=== PATIENT | male | born 1965 | race Caucasian/White ===

== ENCOUNTER 2016-04-14 05:47 | Inpatient (IN) ==
--- NOTE | 2016-04-14 06:10 | Emergency Department Note ---
Disposition Clinical Impression: Chills (without fever) Disposition: Home, Self-Care Referrals: Demetris Dao DO [Primary Care Provider] - Forms: Work/School Release, ED Satisfaction Letter Abdominal Pain HPI - General Chief Complaint: ED Abdominal Pain Stated Complaint: gallbladder out Wed/woke up skaking/chills Time Seen by Provider: 04/14/16 06:03 Source: patient Limitations: no limitations Nursing Notes Reviewed: Yes Vital Signs Reviewed: Yes - History of Present Illness HPI Narrative: 50 yo status post cholecystectomy, postop day 3 presenting with complaint of rigors a few hours prior to presentation. Patient states that he has no new belly pain, states that the pain is just as it was soon after surgery. He denies diarrhea, nausea vomiting; UTI like symptoms. Denies any cough, sinus congestion runny nose. 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 Denies: fever Cardiovascular: Denies: chest pain, palpitations Respiratory: Denies: cough, dyspnea Gastrointestinal: Reports: abdominal pain. Denies: nausea, vomiting, diarrhea Genitourinary: Denies: urgency, dysuria, frequency Musculoskeletal: Denies: back pain Neurological: Denies: headache Abdominal Pain PMH - Past Medical History Medical history: Reports: arthritis, GERD, hypertension Male Surgical History: Reports: cholecystectomy, Tonsillectomy, vasectomy Psychiatric history: Reports: no psych history - Social History Smoking status: Former smoker Alcohol use: Reports: occasionally Drug use: Reports: none Physical Exam - General Limitations: no limitations General appearance: alert - Head Head exam: atraumatic, normocephalic - Eye Eye exam: Present: normal appearance - ENT ENT exam: normal exam - Chest Chest inspection: Present: normal inspection - Respiratory Respiratory exam: Present: normal lung sounds bilaterally. Absent: respiratory distress, wheezes - Abdominal Exam Abdominal exam: Present: soft, tenderness - Neurological Exam Neurological exam: Present: alert, oriented X3 - Skin Skin exam: Present: warm, dry, other (surgical wounds are intact w/o drainage) Course Course Narrative: 50 -year-old male presenting with complaint of rigor prior to presentation, patient is status post cholecystectomy, postoperative day 3. Patient stated that he felt chills, but no fever. He has belly pain, but this is baseline since the surgery. He denies any nausea or vomiting, states that he has constipation and has not had a bowel movement for the past 4 days. Evaluation of abdomen, surgical incision sites are intact w/o drainage. We will do a sepsis workup. Patient is afebrile in the ED, vital signs stable. Vital Signs Temperature 98 F 04/14/16 05:49 Pulse Rate 106 04/14/16 05:49 Respiratory Rate 20 04/14/16 05:49 Blood Pressure 127/76 04/14/16 05:49 O2 Sat by Pulse Oximetry 96 04/14/16 05:49 Temperature 98 F 04/14/16 05:49 Pulse Rate 106 04/14/16 05:49 Respiratory Rate 20 04/14/16 05:49 Blood Pressure 127/76 04/14/16 05:49 O2 Sat by Pulse Oximetry 96 04/14/16 05:49 Oxygen Delivery Oxygen Delivery Room Air Abdominal Pain - Lab Data Result diagrams: 04/14/16 06:21 04/14/16 06:21 Lab Results 04/14/16 04/14/16 04/14/16 Range/Units 06:21 06:21 06:21 WBC 20.1 H (4.3-11.1) K/mcL RBC 4.56 (4.19-5.50) M/mcL Hgb 12.8 L (12.9-16.9) g/dL Hct 39.8 (37.5-50.1) % MCV 87.3 (83.0-100.0) fL MCH 28.1 (28.0-33.3) pg MCHC 32.2 (31.6-35.5) g/dL RDW 14.1 (11.5-14.5) % Plt Count 250 (140-400) K/mcL MPV 9.6 (9.4-12.4) fL Immature Gran % 0.8 (0-4) % Seg Neutrophils % 77.8 % Lymphocytes % 7.2 % Monocytes % 12.0 % Eosinophils % 2.0 % Basophils % 0.2 % Neutrophils # 15.6 H (1.6-8.9) K/mcL Lymphocytes # 1.5 (0.6-4.6) K/mcL Monocytes # 2.4 H (0.0-1.3) K/mcL Eosinophils # 0.4 (0.0-0.6) K/mcL Basophils # 0.0 (0.0-0.2) K/mcL Sodium 140 (136-145) mEq/L Potassium 4.0 (3.5-4.5) mEq/L Chloride 106 (98-109) mEq/L Carbon Dioxide 23 (19-29) mEq/L BUN 21 (8-26) mg/dL Creatinine 1.02 (0.72-1.25) mg/dL Est GFR ( Amer) > 60 (> 60) Est GFR (Non-Af Amer) > 60 (> 60) BUN/Creatinine Ratio 21 (6-26) Glucose 120 H (70-99) mg/dL Calculated Osmolality 294 (280-300) Lactic Acid (0.5-2.2) mmol/L Calcium 8.7 (8.6-10.8) mg/dL Urine Color Dark Yellow (Yellow) Urine Clarity Clear (Clear) Urine pH 6.0 (5.0-8.0) pH Units Ur Specific [place] > 1.030 H (1.010-1.025) Urine Protein 30 H (Neg-Trace) mg/dL Urine Glucose (UA) Normal (Normal) mg/dL Urine Ketones Negative (Negative) mg/dL Urine Blood Negative (Negative) Urine Nitrite Negative (Negative) Urine Bilirubin Negative (Negative) Urine Urobilinogen Normal (Normal) mg/dL Ur Leukocyte Esterase Negative (Negative) Urine Microscopic RBC 3-5 H (0-3) per hpf Urine Microscopic WBC 5-15 H (0-3) per hpf Ur Squamous Epith Cells Many H (None-Few) per lpf Urine Bacteria None Seen (None-Few) per hpf Hyaline Casts Moderate H (None-Few) per lpf Urine Mucus Few (Few) Ur Culture Indicated? YES A (NO) 04/14/16 Range/Units 06:21 WBC (4.3-11.1) K/mcL RBC (4.19-5.50) M/mcL Hgb (12.9-16.9) g/dL Hct (37.5-50.1) % MCV (83.0-100.0) fL MCH (28.0-33.3) pg MCHC (31.6-35.5) g/dL RDW (11.5-14.5) % Plt Count (140-400) K/mcL MPV (9.4-12.4) fL Immature Gran % (0-4) % Seg Neutrophils % % Lymphocytes % % Monocytes % % Eosinophils % % Basophils % % Neutrophils # (1.6-8.9) K/mcL Lymphocytes # (0.6-4.6) K/mcL Monocytes # (0.0-1.3) K/mcL Eosinophils # (0.0-0.6) K/mcL Basophils # (0.0-0.2) K/mcL Sodium (136-145) mEq/L Potassium (3.5-4.5) mEq/L Chloride (98-109) mEq/L Carbon Dioxide (19-29) mEq/L BUN (8-26) mg/dL Creatinine (0.72-1.25) mg/dL Est GFR ( Amer) (> 60) Est GFR (Non-Af Amer) (> 60) BUN/Creatinine Ratio (6-26) Glucose (70-99) mg/dL Calculated Osmolality (280-300) Lactic Acid 1.5 (0.5-2.2) mmol/L Calcium (8.6-10.8) mg/dL Urine Color (Yellow) Urine Clarity (Clear) Urine pH (5.0-8.0) pH Units Ur Specific [place] (1.010-1.025) Urine Protein (Neg-Trace) mg/dL Urine Glucose (UA) (Normal) mg/dL Urine Ketones (Negative) mg/dL Urine Blood (Negative) Urine Nitrite (Negative) Urine Bilirubin (Negative) Urine Urobilinogen (Normal) mg/dL Ur Leukocyte Esterase (Negative) Urine Microscopic RBC (0-3) per hpf Urine Microscopic WBC (0-3) per hpf Ur Squamous Epith Cells (None-Few) per lpf Urine Bacteria (None-Few) per hpf Hyaline Casts (None-Few) per lpf Urine Mucus (Few) Ur Culture Indicated? (NO) Attestation Statement - Attestation Attestation: For this encounter, I have reviewed the resident, CEO [employer] CO FOUNDER, or PA documentation, treatment plan, and medical decision making; and I have had face to face time with this patient. 50-year-old male presents with concerns of chills. Patient states he had his gallbladder removed 3 days ago with a non-complicated cholecystectomy. Patient denies new abdominal pain today. Patient denies nausea, vomiting, diarrhea. Abdominal exam reveals mild tenderness to palpation around the right upper quadrant without evidence of erythema, induration, or fluctuance or drainage from the incision area. Laboratory evaluation and CT pending at the end of my shift. Patient will be signed out to the oncoming physician of the day team pending disposition.
[2016-04-14 06:30] LABS: Basophils % 0.2 %; Eosinophils # 0.4 K/mcL (0.0-0.6); Hematocrit 39.8 % (37.5-50.1); Hemoglobin 12.8 g/dL (12.9-16.9); Immature Granulocytes % 0.8 % (0-4); Lymphocytes # 1.5 K/mcL (0.6-4.6); Lymphocytes % 7.2 %; Mean Corpuscular HGB Conc 32.2 g/dL (31.6-35.5); Mean Corpuscular Hemoglobin 28.1 pg (28.0-33.3); Mean Corpuscular Volume 87.3 fL (83.0-100.0); Mean Platelet Volume 9.6 fL (9.4-12.4); Monocytes # 2.4 K/mcL (0.0-1.3); Neutrophils # 15.6 K/mcL (1.6-8.9); Platelet Count 250 K/mcL (140-400); Red Blood Count 4.56 M/mcL (4.19-5.50); Red Cell Distribution Width 14.1 % (11.5-14.5); Segmented Neutrophils % 77.8 %
[2016-04-14 06:40] LABS: Bilirubin,Urine Negative (Negative); Blood,Urine Negative (Negative); Clarity,Urine Clear (Clear); Color,Urine Dark Yellow (Yellow); Glucose,Urine (UA) Normal (Normal); Ketones,Urine Negative (Negative); Leukocyte Esterase,Urine Negative (Negative); Nitrite,Urine Negative (Negative); Protein,Urine 30 mg/dL (Neg-Trace); Specific Gravity,Urine > 1.030 (1.010-1.025); Urobilinogen,Urine Normal (Normal)
[2016-04-14 06:42] LABS: BUN/Creatinine Ratio 21 (6-26); Bacteria,Urine None Seen per hpf (None-Few); Blood Urea Nitrogen 21 mg/dL (8-26); Calcium 8.7 mg/dL (8.6-10.8); Carbon Dioxide 23 mEq/L (19-29); Chloride 106 mEq/L (98-109); Glucose 120 mg/dL (70-99); Hyaline Casts,Urine Moderate per lpf (None-Few); Osmolality,Calculated 294 (280-300); Sodium 140 mEq/L (136-145); Squamous Epithelial Cell,Urine Many per lpf (None-Few); eGFR For African Americans > 60 (> 60); eGFR For Non-African Americans > 60 (> 60)
[2016-04-14 06:52] LABS: Mucus,Urine Few (Few)
[2016-04-14] MEDS ORDERED: 0.9 % Sodium Chloride 1,000 ML IV ONE (07:09)
[2016-04-14] MEDS ORDERED: *HR* HYDROmorphone (PF) 1 MG/ML SYRINGE IV ONE (07:09)
[2016-04-14] MEDS ORDERED: Ondansetron 4 MG/2 ML VIAL IV ONE (07:09)
[2016-04-14] MEDS ORDERED: *HR* HYDROmorphone (PF) 1 MG/ML SYRINGE IVP ONE (07:14)
[2016-04-14] MEDS ORDERED: Piperacillin/Tazobactam 3.375 GM in D5% in Water (Mini-Bag+) 100 ML IVPB ONE (07:14)
--- NOTE | 2016-04-14 07:21 | Emergency Department Note ---
Disposition Clinical Impression: Chills (without fever), Status post cholecystectomy, Subhepatic abscess, Choledocholithiasis Disposition: Admitted As Inpatient Condition: Good Abdominal Pain HPI - General Chief Complaint: ED Abdominal Pain Stated Complaint: gallbladder out Wed/woke up skaking/chills Time Seen by Provider: 04/14/16 06:03 Source: patient - History of Present Illness HPI Narrative: Patient was signed out by shredded filler machine wrapper layer provider. Please see Dr. Crain note for full details. Pt Subjective Complaint: abdominal pain Location: diffuse Pain Scale: 5 - Related Data Home Medications Medication Instructions Recorded Confirmed Lisinopril [Zestril] 20 mg PO DAILY 04/11/16 04/14/16 Omeprazole [PriLOSEC] 40 mg PO DAILY 04/11/16 04/14/16 Sertraline [Zoloft] 100 mg PO DAILY 04/11/16 04/14/16 Ibuprofen [Motrin] 800 mg PO TID 04/14/16 04/14/16 OxyCODONE/APAP 10/325 [Percocet 1 tab PO Q6HR PRN 04/14/16 04/14/16 10/325 MG] Allergies Allergy/AdvReac Type Severity Reaction Status Date / Time No Known Allergies Allergy Verified 04/14/16 05:49 All systems ED: reviewed and negative except as stated. Constitutional: Reports: chills. Denies: fever Cardiovascular: Denies: chest pain, palpitations Respiratory: Denies: cough, dyspnea Gastrointestinal: Reports: abdominal pain. Denies: nausea, vomiting, diarrhea Genitourinary: Denies: urgency, dysuria, frequency Musculoskeletal: Denies: back pain Neurological: Denies: headache Abdominal Pain PMH - Past Medical History Medical history: Reports: arthritis, GERD, hypertension Male Surgical History: Reports: cholecystectomy, Tonsillectomy, vasectomy Psychiatric history: Reports: no psych history - Social History Smoking status: Former smoker Alcohol use: Reports: occasionally Drug use: Reports: none Physical Exam - General Limitations: no limitations General appearance: alert, in no apparent distress - Head Head exam: normocephalic, normal inspection - Eye Eye exam: Present: normal appearance, EOMI - ENT ENT exam: normal exam, mucous membranes moist - Neck Neck exam: Present: normal inspection, trachea midline - Chest Chest inspection: Present: normal inspection, symmetric chest wall rise - Respiratory Respiratory exam: Absent: respiratory distress, accessory muscle use - Cardiovascular Cardiovascular exam: Present: regular rate, normal rhythm - Abdominal Exam Abdominal exam: Present: soft, tenderness (mild tenderness), distention, scar ( well approximated healing incision consistent with recent surgery). Absent: guarding, rebound, hernia - Extremities Exam Extremities exam: Present: normal inspection. Absent: pedal edema - Back Exam Back exam: Present: normal inspection. Absent: tenderness, CVA tenderness (R), CVA tenderness (L) - Neurological Exam Neurological exam: Present: alert, oriented X3 - Skin Skin exam: Present: warm, dry, intact, normal color Course Course Narrative: Patient seen and examined. Patient was signed out by oncoming provider. Patient status postop from a laparoscopic cholecystectomy. Patient reports some continuing pain. Patient noted that he woke up this morning with rigors and chills and no fever. Patient was screened for signs of infection which include a chest x-ray and abd pelvis CT with contrast as well as a UA as the patient did have a urinary catheter. - Reevaluation(s) Reevaluation #1: Patient's operative note was noted and showed a filling defect with intraoperative cholangiogram. Plan is for outpatient follow-up with GI with ERCP. Patient CT the abdomen and pelvis shows a 5 mm stone within the distal common bile duct with a 4.8 x 9.3 cm fluid collection within the postoperative bed. Patient's chest x-ray shows bilateral atelectasis versus pneumonia. Patient does have an elevated white count with likely source of infection. Patient will be cultured and started on antibiotics. Will speak with surgery. Time: 07:29 Reevaluation #2: Patient is up-to-date on plan of care. Patient denies any pain at this time. Patient will be admitted to surgery. Time: 07:50 - Consultations Consultation #1: Dr. Sudhir florez to see the patient. Will admit to surgery with plan for IR drainage of abdominal fluid collection in post operative bed. Time: 07:44 Vital Signs Temperature 98 F 04/14/16 05:49 Pulse Rate 106 04/14/16 05:49 Respiratory Rate 20 04/14/16 05:49 Blood Pressure 127/76 04/14/16 05:49 O2 Sat by Pulse Oximetry 96 04/14/16 05:49 Temperature 98.5 F 04/14/16 11:21 Pulse Rate 99 04/14/16 12:13 Respiratory Rate 16 04/14/16 12:13 Blood Pressure 144/88 04/14/16 12:13 O2 Sat by Pulse Oximetry 95 04/14/16 12:13 Oxygen Delivery Oxygen Delivery Nasal Cannula Abdominal Pain - MDM Narrative Medical decision making narrative: 50-year-old male who is status postop from a laparoscopic cholecystectomy presents for evaluation of chills. Patient states that the chills started this morning. Patient's interoperative report was reviewed and showed a filling defect in the common bile duct with several attempts to remove the stone. Patient's CT abdomen and pelvis shows a postoperative fluid collection that is approximately 4.8 x 9.3 cm in the postoperative bed. Patient also has a 5 mm stone in the distal common bile duct. Patient's symptoms likely result of the fluid collection in the postoperative bed. Patient's labs show that he does have a leukocytosis. Concerns for infection. Patient is started on antibiotics. Patient's chest x-ray also shows bilateral lower lobe infiltrates with a small right pleural effusion. Plan is admit to surgery for IR drainage of postoperative fluid collection. Patient's updated on plan of care. Patient denies any needs at this time. Patient does meets SIRS criteria with likely source of infection. With the 30cc/ kg criteria of IVFs, their is concerns about overaggressive fluid hydration in this gentleman. Patient's received 1 L normal saline as well as subsequent normal saline fluid boluses. Patient's hemodynamically stable and do not believe that he would benefit from excessive fluid overload if there is possible further surgical intervention. Patient's antibiotic regimen was started in the ER. - Lab Data Lab results reviewed: Yes I reviewed the patient's lab results. Result diagrams: 04/14/16 06:21 04/14/16 10:05 Lab Results 04/14/16 04/14/16 04/14/16 Range/Units 06:21 06:21 06:21 WBC 20.1 H (4.3-11.1) K/mcL RBC 4.56 (4.19-5.50) M/mcL Hgb 12.8 L (12.9-16.9) g/dL Hct 39.8 (37.5-50.1) % MCV 87.3 (83.0-100.0) fL MCH 28.1 (28.0-33.3) pg MCHC 32.2 (31.6-35.5) g/dL RDW 14.1 (11.5-14.5) % Plt Count 250 (140-400) K/mcL MPV 9.6 (9.4-12.4) fL Immature Gran % 0.8 (0-4) % Seg Neutrophils % 77.8 % Lymphocytes % 7.2 % Monocytes % 12.0 % Eosinophils % 2.0 % Basophils % 0.2 % Neutrophils # 15.6 H (1.6-8.9) K/mcL Lymphocytes # 1.5 (0.6-4.6) K/mcL Monocytes # 2.4 H (0.0-1.3) K/mcL Eosinophils # 0.4 (0.0-0.6) K/mcL Basophils # 0.0 (0.0-0.2) K/mcL PT (9.4-12.1) Seconds INR APTT (26.0-36.0) Seconds Sodium 140 (136-145) mEq/L Potassium 4.0 (3.5-4.5) mEq/L Chloride 106 (98-109) mEq/L Carbon Dioxide 23 (19-29) mEq/L BUN 21 (8-26) mg/dL Creatinine 1.02 (0.72-1.25) mg/dL Est GFR ( Amer) > 60 (> 60) Est GFR (Non-Af Amer) > 60 (> 60) BUN/Creatinine Ratio 21 (6-26) Glucose 120 H (70-99) mg/dL Calculated Osmolality 294 (280-300) Lactic Acid (0.5-2.2) mmol/L Calcium 8.7 (8.6-10.8) mg/dL Total Bilirubin (0.2-1.2) mg/dL Direct Bilirubin (0.0-0.5) mg/dL Indirect Bilirubin (0.0-1.2) mg/dL AST (5-34) Units/L ALT (0-55) Units/L Alkaline Phosphatase (38-126) Units/L Serum Total Protein (6.0-8.3) g/dL Albumin (3.5-5.0) g/dL Globulin (2.4-3.5) g/dL Albumin/Globulin Ratio (1.1-2.2) Urine Color Dark Yellow (Yellow) Urine Clarity Clear (Clear) Urine pH 6.0 (5.0-8.0) pH Units Ur Specific [place] > 1.030 H (1.010-1.025) Urine Protein 30 H (Neg-Trace) mg/dL Urine Glucose (UA) Normal (Normal) mg/dL Urine Ketones Negative (Negative) mg/dL Urine Blood Negative (Negative) Urine Nitrite Negative (Negative) Urine Bilirubin Negative (Negative) Urine Urobilinogen Normal (Normal) mg/dL Ur Leukocyte Esterase Negative (Negative) Urine Microscopic RBC 3-5 H (0-3) per hpf Urine Microscopic WBC 5-15 H (0-3) per hpf Ur Squamous Epith Cells Many H (None-Few) per lpf Urine Bacteria None Seen (None-Few) per hpf Hyaline Casts Moderate H (None-Few) per lpf Urine Mucus Few (Few) Ur Culture Indicated? YES A (NO) 04/14/16 04/14/16 04/14/16 Range/Units 06:21 07:41 07:46 WBC (4.3-11.1) K/mcL RBC (4.19-5.50) M/mcL Hgb (12.9-16.9) g/dL Hct (37.5-50.1) % MCV (83.0-100.0) fL MCH (28.0-33.3) pg MCHC (31.6-35.5) g/dL RDW (11.5-14.5) % Plt Count (140-400) K/mcL MPV (9.4-12.4) fL Immature Gran % (0-4) % Seg Neutrophils % % Lymphocytes % % Monocytes % % Eosinophils % % Basophils % % Neutrophils # (1.6-8.9) K/mcL Lymphocytes # (0.6-4.6) K/mcL Monocytes # (0.0-1.3) K/mcL Eosinophils # (0.0-0.6) K/mcL Basophils # (0.0-0.2) K/mcL PT 12.2 H (9.4-12.1) Seconds INR 1.1 APTT 25.3 L (26.0-36.0) Seconds Sodium (136-145) mEq/L Potassium (3.5-4.5) mEq/L Chloride (98-109) mEq/L Carbon Dioxide (19-29) mEq/L BUN (8-26) mg/dL Creatinine (0.72-1.25) mg/dL Est GFR ( Amer) (> 60) Est GFR (Non-Af Amer) (> 60) BUN/Creatinine Ratio (6-26) Glucose (70-99) mg/dL Calculated Osmolality (280-300) Lactic Acid 1.5 (0.5-2.2) mmol/L Calcium (8.6-10.8) mg/dL Total Bilirubin 0.8 (0.2-1.2) mg/dL Direct Bilirubin 0.4 (0.0-0.5) mg/dL Indirect Bilirubin 0.4 (0.0-1.2) mg/dL AST 20 (5-34) Units/L ALT 37 (0-55) Units/L Alkaline Phosphatase 68 (38-126) Units/L Serum Total Protein 6.6 (6.0-8.3) g/dL Albumin 2.8 L (3.5-5.0) g/dL Globulin 3.8 H (2.4-3.5) g/dL Albumin/Globulin Ratio 0.7 L (1.1-2.2) Urine Color (Yellow) Urine Clarity (Clear) Urine pH (5.0-8.0) pH Units Ur Specific [place] (1.010-1.025) Urine Protein (Neg-Trace) mg/dL Urine Glucose (UA) (Normal) mg/dL Urine Ketones (Negative) mg/dL Urine Blood (Negative) Urine Nitrite (Negative) Urine Bilirubin (Negative) Urine Urobilinogen (Normal) mg/dL Ur Leukocyte Esterase (Negative) Urine Microscopic RBC (0-3) per hpf Urine Microscopic WBC (0-3) per hpf Ur Squamous Epith Cells (None-Few) per lpf Urine Bacteria (None-Few) per hpf Hyaline Casts (None-Few) per lpf Urine Mucus (Few) Ur Culture Indicated? (NO) - Radiology Data Radiology results reviewed: Yes I reviewed the patient's radiology results. Chest X-Ray 04/14/16 06:03 IMPRESSION: Low volume study with bibasilar atelectasis or pneumonia. D/ / Jean Paul Sifuentes MD / Jean Paul Sifuentes MD Interpreting Provider: Jean Paul Sifuentes MD Abdomen/Pelvis CT 04/14/16 06:29 IMPRESSION: 1. Status post cholecystectomy with 4.8 x 9.3 cm fluid collection within the postoperative bed. Cannot exclude biloma. 2. There is a 5 mm stone within the distal common bile duct. 3. Bilateral lower lobe infiltrate and small right effusion. D/ / 04/14/2016 07:15:03 Scottie Bae MD / Smita Curtis Interpreting Provider: Scottie Bae MD Critical Care Time Critical Care Time: Yes Total Critical Care Time: 30 Attestation: Critical care performed: Time is exclusive of separately billable procedures. Time includes: direct patient care, patient reassessment, coordination of patient care, interpretation of data (laboratory data, radiology data, and respiratory data), review of patient's medical records, medical consultation and documentation of patient care. Procedures included in critical care time: Procedures excluded from critical care time: S.B.A.R. - S.B.ACitlalli Situation: Demographics, MOA Background: Presenting Complaint Assessment: Vital Signs, Course and respsone to treatment, Patient/Family Expectation, Pertinant Lab Results Recommendation: Barrier(s) to disposition, Recommendation based on pending studies, treatments, or consults S.B.ANoraRNora Report Given to: Dr. Tom Mitchell Repor Time: 08:25 Attestation Statement - Attestation Attestation: I examined this patient and my medical decision-making was reviewed with the RETAIL MORTGAGE BANKER/PA/Advanced Practice Nurse/Resident Physician. I agree with the documented findings, disposition and treatment plan as described except to the extent set forth below. Patient signed out pending CT. Patient has a 4 x 9 cm fluid collection with the gallbladder was removed. His elevated white blood cell count. He received a dose of Zosyn. He was discussed with surgery who consulted on him in the department. He is admitted to Dr. Peguero. Cultures and lactate ordered.
--- NOTE | 2016-04-14 07:46 | General Surg History&Physical ---
Date of Encounter: 04/14/16 Time of Encounter: 07:43 Assessment and Plan (1) Subhepatic abscess Current Visit: Yes Status: Acute I explained to the patient that I personally reviewed the CT scan images do see the small common bile duct stone but more importantly than 9 x 5 significant subhepatic fluid collection as well. I think the latter is the source of his rigors and leukocytosis. We will start IV antibiotics and I will admit him and request a CT scan guided drainage of the subhepatic fluid collection. The assessment and plan as outlined above was discussed with the patient and/or family members who expressed understanding and agreement. All questions were answered. (2) Choledocholithiasis Current Visit: Yes Status: Acute The patient was to follow with me as an outpatient and be referred for a possible ERCP as an outpatient. Liver function tests have not been returned yet to see whether or not he is having signs of obstruction or possible obstruction from this 5 mm stone. I will request a CT scan guided drainage of the fluid collection and if it appears that the stone may be causing problems ( related to the liver function tests) then we will likely need to transfer the patient for possible ERCP during this hospital stay. The assessment and plan as outlined above was discussed with the patient and/or family members who expressed understanding and agreement. All questions were answered. History of Present Illness Chief complaint: Right upper abdominal pain, rigors HPI: Mr. Pires is a 50 year old male who recently underwent a laparoscopic cholecystectomy with intraoperative cholangiogram and attempted removal of common bile duct stone on 04/10/2016 presents to the [facility] emergency room with increasing abdominal pain particularly worsened with deep breaths, as well as rigors. The patient contacted our office yesterday stating that he been having some increasing abdominal pain symptoms since his surgery. He was instructed to take Motrin in addition to his current pain medication which did resolve his symptoms. He was to follow-up with me in the office next week and also be referred to gastroenterology for possible ERCP due to the non- retrievable, non-obstructive common bile duct stone (which had likely been present for some time and which was free-floating within the common bile duct), however because of his persistent and worsening abdominal pain symptoms he presented to the emergency room. He denies any nausea or vomiting and denies any diarrhea or constipation or rectal bleeding. Past Med Surg Social Fam HX - Past Medical History Medical history: arthritis, GERD, hypertension Psychiatric history: no psych history - Past Surgical History Surgical History: cholecystectomy, vasectomy - Social History Smoking Status: Former smoker Smokeless Tobacco Status: No Alcohol use: occasionally Drug use: none Medications and Allergies Lisinopril [Zestril] 20 mg PO DAILY 04/11/16 [History] Omeprazole [PriLOSEC] 40 mg PO DAILY 04/11/16 [History] OxyCODONE/APAP 10/325 [Percocet 10/325 MG] 1 each PO Q6HR PRN #26 tablet [Rx] Sertraline [Zoloft] 100 mg PO DAILY 04/11/16 [History] Allergies No Known Allergies Allergy (Verified 04/14/16 05:49) Review of Systems All systems PM: reviewed and no additional remarkable complaints except as stated All systems PM: A 10-system review of systems was performed and is negative for pertinent findings except as documented above in the HPI. General Surgery Exam Initial Vital Signs Temp Pulse Resp BP Pulse Ox 98 F 106 20 127/76 96 04/14/16 05:49 04/14/16 05:49 04/14/16 05:49 04/14/16 05:49 04/14/16 05:49 - Eyes PERRL, normal ocular movement - Respiratory normal expansion, normal respiratory effort (Decreased breath sounds at the bases) - Cardiovascular Cardiovascular exam: Present: RRR, no murmurs/rubs/gallops - Abdomen Abdomen general surgery: Present: bowel sounds present (Mildly obese), distended (Mildly distended), tender (RUQ pain to palpation) - Neurologic Present: CN 2-12 grossly intact - Psychiatric Psychiatric general surgery: Present: A&Ox3, oriented to person, oriented to place, oriented to time Results - Labs 04/14/16 06:21 04/14/16 06:21 Abnormal lab results WBC 20.1 K/mcL (4.3-11.1) H 04/14/16 06:21 Hgb 12.8 g/dL (12.9-16.9) L 04/14/16 06:21 Neutrophils # 15.6 K/mcL (1.6-8.9) H 04/14/16 06:21 Monocytes # 2.4 K/mcL (0.0-1.3) H 04/14/16 06:21 Glucose 120 mg/dL (70-99) H 04/14/16 06:21 Ur Specific Ridge > 1.030 (1.010-1.025) H 04/14/16 06:21 Urine Protein 30 mg/dL (Neg-Trace) H 04/14/16 06:21 Urine Microscopic RBC 3-5 per hpf (0-3) H 04/14/16 06:21 Urine Microscopic WBC 5-15 per hpf (0-3) H 04/14/16 06:21 Ur Squamous Epith Cells Many per lpf (None-Few) H 04/14/16 06:21 Hyaline Casts Moderate per lpf (None-Few) H 04/14/16 06:21 Ur Culture Indicated? YES (NO) A 04/14/16 06:21 Diabetes panel 04/14/16 Range/Units 06:21 Sodium 140 (136-145) mEq/L Potassium 4.0 (3.5-4.5) mEq/L Chloride 106 (98-109) mEq/L Carbon Dioxide 23 (19-29) mEq/L BUN 21 (8-26) mg/dL Creatinine 1.02 (0.72-1.25) mg/dL Glucose 120 H (70-99) mg/dL Calcium 8.7 (8.6-10.8) mg/dL Calcium panel 04/14/16 Range/Units 06:21 Calcium 8.7 (8.6-10.8) mg/dL Pituitary panel 04/14/16 Range/Units 06:21 Sodium 140 (136-145) mEq/L Potassium 4.0 (3.5-4.5) mEq/L Chloride 106 (98-109) mEq/L Carbon Dioxide 23 (19-29) mEq/L BUN 21 (8-26) mg/dL Creatinine 1.02 (0.72-1.25) mg/dL Glucose 120 H (70-99) mg/dL Calcium 8.7 (8.6-10.8) mg/dL Adrenal panel 04/14/16 Range/Units 06:21 Sodium 140 (136-145) mEq/L Potassium 4.0 (3.5-4.5) mEq/L Chloride 106 (98-109) mEq/L Carbon Dioxide 23 (19-29) mEq/L BUN 21 (8-26) mg/dL Creatinine 1.02 (0.72-1.25) mg/dL Glucose 120 H (70-99) mg/dL Calcium 8.7 (8.6-10.8) mg/dL All other labs normal. - Imaging CT scan - abdomen: report reviewed, image reviewed (CT scan shows evidence of a small 5 mm common bile duct stone with a 9 x 5 cm subhepatic fluid collection in the fossa.)
[2016-04-14 08:00] LABS: INR 1.1; Prothrombin Time 12.2 Seconds (9.4-12.1)
[2016-04-14 08:03] LABS: Activated Partial Thrombo Time 25.3 Seconds (26.0-36.0)
[2016-04-14 08:07] LABS: Albumin 2.8 g/dL (3.5-5.0); Albumin/Globulin Ratio 0.7 (1.1-2.2); Bilirubin,Direct 0.4 mg/dL (0.0-0.5); Bilirubin,Indirect 0.4 mg/dL (0.0-1.2); Bilirubin,Total 0.8 mg/dL (0.2-1.2); Globulin 3.8 g/dL (2.4-3.5); Total Protein 6.6 g/dL (6.0-8.3)
[2016-04-14] MEDS ORDERED: 0.9 % Sodium Chloride 1,000 ML IVC SCH (08:30)
[2016-04-14] MEDS ORDERED: Piperacillin/Tazobactam 3.375 GM in D5% in Water (Mini-Bag+) 100 ML IVPB SCH (09:07)
[2016-04-14] MEDS ORDERED: Ondansetron 4 MG/2 ML VIAL IVPB PRN (09:07)
[2016-04-14] MEDS: *HR* HYDROmorphone 2 MG/ML SYRINGE IM PRN ×2 (09:55→18:11)
[2016-04-14] MEDS: 0.9 % Sodium Chloride 1,000 ML IVC SCH ×2 (09:57→19:46)
[2016-04-14] MEDS ORDERED: *HR* Midazolam HCl 2 MG/2 ML VIAL IV PRN (10:31)
[2016-04-14] MEDS ORDERED: *HR* FentaNYL (PF) 100 MCG/2 ML VIAL IV PRN (10:31)
[2016-04-14 10:46] LABS: Alanine Aminotransferase 35 Units/L (0-55); Albumin 2.8 g/dL (3.5-5.0); Albumin/Globulin Ratio 0.8 (1.1-2.2); Alkaline Phosphatase 67 Units/L (38-126); Aspartate Amino Transferase 20 Units/L (5-34); BUN/Creatinine Ratio 19 (6-26); Bilirubin,Total 0.6 mg/dL (0.2-1.2); Blood Urea Nitrogen 17 mg/dL (8-26); Calcium 8.4 mg/dL (8.6-10.8); Carbon Dioxide 25 mEq/L (19-29); Chloride 106 mEq/L (98-109); Globulin 3.6 g/dL (2.4-3.5); Glucose 135 mg/dL (70-99); Osmolality,Calculated 292 (280-300); Potassium 3.7 mEq/L (3.5-4.5); Sodium 139 mEq/L (136-145); Total Protein 6.4 g/dL (6.0-8.3); eGFR For African Americans > 60 (> 60); eGFR For Non-African Americans > 60 (> 60)
[2016-04-14] MEDS ORDERED: 0.9 % Sodium Chloride 500 ML ONE (11:16)
--- NOTE | 2016-04-14 11:24 | Pre-Sedation Evaluation ---
Pre-sedation evaluation - Pre-sedation checklist Date of procedure: 04/14/16 Procedure: abdominal drain placement Recent Vitals: Last Vital Signs Temp 98.5 F 04/14/16 07:33 Pulse 91 04/14/16 07:33 Resp 20 04/14/16 08:24 BP 128/69 04/14/16 08:24 Pulse Ox 91 L 04/14/16 07:33 H&P (including ROS) documented in medical record: Yes Dietary Status: NPO 6 hours prior to procedure Airway Assessment: Patient can open mouth completely, TMJ function normal, Micrognathia (under-bite, receding chin) absent, Neck with adequate range of motion Possible difficult airway: No ASA Classification *see protocol: CLASS II-Mild systemic disease Plan of Care: Pt appropriate candidate for procedure/moderate/conscious sedation , Risks/benefits of procedure/sedation discussed w/ patient/family, If not NPO; Risk of intake outweiged by necessity to perform procedure
--- NOTE | 2016-04-14 12:26 | IR Procedure Note ---
Date of procedure: 04/14/16 Consent Obtained: Verbal consent, Written consent Timeout: Correct patient and procedure verified, Correct site verified, Time out performed, Skin prep completed Local anesthetic: Lidocaine 1% Indications: gallbladder fossa collection Procedure Performed: drain placement Site/Technique: RUQ Results/Findings: 60 mL bloody, purulent material aspirated, sample sent to lab Estimated blood loss (cc): 2 Complications: None; Tolerated procedure well Post Procedure Treatment Plan: bedrest x 1 hour; catheter to MEGAN bulb with 10 mL saline flushes bid
[2016-04-14] MEDS: Pantoprazole 40 MG VIAL IVP SCH (14:33)
[2016-04-14] MEDS: Acetaminophen 325 MG TABLET PO PRN (16:48)
[2016-04-14] MEDS: Piperacillin/Tazobactam 3.375 GM in D5% in Water (Mini-Bag+) 100 ML IVPB SCH (16:49)
[2016-04-15] MEDS: Piperacillin/Tazobactam 3.375 GM in D5% in Water (Mini-Bag+) 100 ML IVPB SCH ×4 (00:09→23:27)
[2016-04-15] MEDS: *HR* HYDROmorphone 2 MG/ML SYRINGE IM PRN (00:13)
[2016-04-15] MEDS: 0.9 % Sodium Chloride 1,000 ML IVC SCH ×2 (05:28→15:48)
[2016-04-15 07:08] LABS: Basophils % 0.1 %; Eosinophils # 0.1 K/mcL (0.0-0.6); Eosinophils % 0.3 %; Hematocrit 33.7 % (37.5-50.1); Immature Granulocytes % 0.8 % (0-4); Lymphocytes # 0.8 K/mcL (0.6-4.6); Lymphocytes % 4.7 %; Mean Corpuscular HGB Conc 32.3 g/dL (31.6-35.5); Mean Corpuscular Hemoglobin 28.4 pg (28.0-33.3); Mean Corpuscular Volume 87.8 fL (83.0-100.0); Mean Platelet Volume 9.5 fL (9.4-12.4); Monocytes # 2.4 K/mcL (0.0-1.3); Monocytes % 13.5 %; Neutrophils # 14.2 K/mcL (1.6-8.9); Platelet Count 243 K/mcL (140-400); Red Blood Count 3.84 M/mcL (4.19-5.50); Red Cell Distribution Width 14.1 % (11.5-14.5); Segmented Neutrophils % 80.6 %
[2016-04-15] MEDS ORDERED: *HR* Heparin 5,000 UNIT/ML VIAL SQ ONE (07:56)
[2016-04-15 08:00] LABS: Hemoglobin 10.9 g/dL (12.9-16.9)
[2016-04-15 08:06] LABS: Platelet Estimate Normal (Normal)
[2016-04-15] MEDS: Acetaminophen 325 MG TABLET PO PRN (08:07)
[2016-04-15] MEDS: Lisinopril 20 MG TABLET PO SCH (08:08)
[2016-04-15] MEDS: Pantoprazole 40 MG VIAL IVP SCH (08:09)
[2016-04-15] MEDS: Ketorolac 30 MG/ML VIAL IVP SCH (12:09)
--- NOTE | 2016-04-15 13:06 | General Surgery Progress Note ---
<Megan Martinez - Last Filed: 04/15/16 13:04> Date of Encounter: 04/15/16 Time of Encounter: 13:04 - Assessment and Plan (1) Subhepatic abscess Current Visit: Yes Status: Acute s/p IR drainage 04/14/2016 MEGAN drain IV antibiotics - Zosyn pain control supportive care (2) Choledocholithiasis Current Visit: Yes Status: Acute hepatic panel normal 04/14/[address] Ferro tomorrow morning NPO after midnight - in case Dr. Ferro wants to do ERCP Saturday Subjective Patient reports: still having pain, pain is less, tolerating a regular diet, diarrhea, afebrile (T max 100.1), other (sweats and chills) Objective Vital Signs - Last 8 Hours Temp Pulse Resp BP Pulse Ox 04/15/16 11:48 97.7 F 79 16 113/64 97 04/15/16 07:34 98.8 F 93 16 135/78 96 04/15/16 07:05 93 L Intake and Output 04/14/16 04/15/16 04/15/16 23:59 07:59 15:59 Intake Total 1100 / 1100 1100 / 1100 771 / 771 Output Total 695 / 695 20 / 20 20 / 20 Balance 405 / 405 1080 / 1080 751 / 751 Intake: IV Fluids 1100 / 1100 1100 / 1100 771 / 771 0.9 % Sodium Chloride 1, 1000 / 1000 1000 / 1000 671 / 671 000 ML @ 100 mls/hr IVC . Q10H [facility] Rx#:[id number] Zosyn 3.375 GM In 100 / 100 100 / 100 100 / 100 Dextrose 5% (Minibag+) 100 ML 100 ML @ 25 mls/hr IVPB Q8HR [facility] Rx#: [id number] Output: Urine 650 / 650 0 / 0 0 / 0 Wound Drainage 45 / 45 20 / 20 20 / 20 Right Abdomen 45 / 45 20 / 20 20 / 20 Other: Stool Size Moderate Stool Consistency loose # Voids 2 # Bowel Movements 1 Blood Glucose* 127 138 - General physical appearance well developed, well nourished, no distress - Eyes normal ocular movement - ENT normal mucosa, atraumatic, normocephalic - Neck Neck exam: trachea midline - Respiratory normal respiratory effort, other (diminished bases) - Cardiovascular Cardiovascular exam: Present: RRR - Abdomen Abdomen: Present: bowel sounds present, soft, tender Abdominal Tenderness: RUQ - Integumentary no rash - Neurologic CN 2-12 grossly intact - Musculoskeletal normal posture - Psychiatric oriented to time, oriented to person, oriented to place, speech is normal, memory intact - Labs 04/15/16 05:39 04/14/16 10:05 Consult Discharge Plan - Plan Referrals: Demetris Dao DO [Primary Care Provider] - <Reagan Peguero - Last Filed: 04/15/16 23:44> - Assessment and Plan (1) Subhepatic abscess Current Visit: Yes Status: Acute (2) Choledocholithiasis Current Visit: Yes Status: Acute Objective Vital Signs - Last 8 Hours Temp Pulse Resp BP Pulse Ox 04/15/16 23:16 98.8 F 90 18 127/70 94 L 04/15/16 20:44 98.9 F 85 18 143/75 95 04/15/16 17:03 98.1 F 77 17 129/75 94 L Intake and Output 04/15/16 04/15/16 04/15/16 07:59 15:59 23:59 Intake Total 1100 / 1100 1100 / 1100 100 / 100 Output Total 20 / 20 Balance 1080 / 1080 1080 / 1080 85 / 85 Intake: IV Fluids 1100 / 1100 1100 / 1100 100 / 100 0.9 % Sodium Chloride 1, 1000 / 1000 1000 / 1000 000 ML @ 100 mls/hr IVC . Q10H [facility] Rx#:[id number] Zosyn 3.375 GM In 100 / 100 100 / 100 100 / 100 Dextrose 5% (Minibag+) 100 ML 100 ML @ 25 mls/hr IVPB Q8HR [facility] Rx#: [id number] Output: Urine 0 / 0 0 / 0 Wound Drainage / 20 20 Right Abdomen 20 Other: Stool Size Moderate Stool Consistency loose # Voids 2 2 # Bowel Movements 1 Blood Glucose* 138 - Labs 04/15/16 05:39 04/14/16 10:05 - Attending Attestation I examined this patient and my medical decision-making was reviewed with the PRINTER SLOTTER FEEDER/PA/Advanced Practice Nurse/Resident Physician. I agree with the documented findings, disposition and treatment plan as described except to the extent set forth below. Review of the physical examination and assessment. Patient has had some elevated temperature and some discomfort but states that the right upper quadrant pain feels somewhat better than he did prior to the drain placement. He denies any nausea or vomiting. Leukocytosis has improved slightly. No evidence of hyperbilirubinemia noted. Will make nothing by mouth and likely consult gastroenterology tomorrow just in case they would like to perform an ERCP due to the patient's choledocholithiasis. Continue with IV antibiotics.
[2016-04-15] MEDS ORDERED: *HR* HYDROmorphone 2 MG/ML SYRINGE IM PRN (13:17)
[2016-04-15] MEDS ORDERED: *HR* HYDROmorphone 2 MG/ML SYRINGE IVP PRN (13:29)
[2016-04-16] MEDS: Ketorolac 30 MG/ML VIAL IVP SCH ×4 (01:51→20:37)
[2016-04-16] MEDS: 0.9 % Sodium Chloride 1,000 ML IVC SCH ×2 (02:12→12:13)
[2016-04-16] MEDS: Lisinopril 20 MG TABLET PO SCH (08:18)
[2016-04-16] MEDS: Pantoprazole 40 MG VIAL IVP SCH (08:18)
[2016-04-16] MEDS: Piperacillin/Tazobactam 3.375 GM in D5% in Water (Mini-Bag+) 100 ML IVPB SCH ×3 (08:18→23:52)
[2016-04-16 10:16] LABS: Basophils % 0.3 %; Eosinophils # 0.5 K/mcL (0.0-0.6); Eosinophils % 3.8 %; Hematocrit 32.7 % (37.5-50.1); Hemoglobin 10.8 g/dL (12.9-16.9); Immature Granulocytes % 1.3 % (0-4); Lymphocytes # 1.2 K/mcL (0.6-4.6); Lymphocytes % 10.1 %; Mean Corpuscular Hemoglobin 28.1 pg (28.0-33.3); Mean Corpuscular Volume 84.9 fL (83.0-100.0); Mean Platelet Volume 8.7 fL (9.4-12.4); Monocytes % 8.8 %; Neutrophils # 8.9 K/mcL (1.6-8.9); Platelet Count 245 K/mcL (140-400); Red Blood Count 3.85 M/mcL (4.19-5.50); Red Cell Distribution Width 13.5 % (11.5-14.5); Segmented Neutrophils % 75.7 %
[2016-04-16 10:35] LABS: Alanine Aminotransferase 29 Units/L (0-55); Albumin 2.3 g/dL (3.5-5.0); Albumin/Globulin Ratio 0.6 (1.1-2.2); Alkaline Phosphatase 68 Units/L (38-126); Aspartate Amino Transferase 18 Units/L (5-34); BUN/Creatinine Ratio 18 (6-26); Bilirubin,Total 0.4 mg/dL (0.2-1.2); Blood Urea Nitrogen 14 mg/dL (8-26); Calcium 8.1 mg/dL (8.6-10.8); Carbon Dioxide 22 mEq/L (19-29); Chloride 107 mEq/L (98-109); Globulin 3.6 g/dL (2.4-3.5); Glucose 134 mg/dL (70-99); Osmolality,Calculated 286 (280-300); Sodium 137 mEq/L (136-145); Total Protein 5.9 g/dL (6.0-8.3); eGFR For African Americans > 60 (> 60); eGFR For Non-African Americans > 60 (> 60)
--- NOTE | 2016-04-16 12:06 | General Surgery Progress Note ---
<Jorge A Murray - Last Filed: 04/16/16 17:56> Date of Encounter: 04/16/16 Time of Encounter: 09:20 - Assessment and Plan (1) Subhepatic abscess Current Visit: Yes Status: Acute s/p IR drainage 04/14/16 MEGAN drain IV antibiotics-Zosyn pain control supportive care (2) Choledocholithiasis Current Visit: Yes Status: Acute Dr. Ferro consulted to see today. Plan for NPO after midnight, in case Dr. Ferro wants to do ERCP tomorrow. Subjective Patient reports: no new complaints, feels better, tolerating a regular diet, afebrile Objective Vital Signs - Last 8 Hours Temp Pulse Resp BP Pulse Ox 04/16/16 11:00 98.0 F 84 16 148/78 95 04/16/16 07:00 98.4 F 83 16 144/82 95 Intake and Output 04/15/16 04/16/16 04/16/16 23:59 07:59 15:59 Intake Total 100 / 100 1100 / 1100 360 / 360 Output Total Balance 85 / 85 1095 / 1095 350 / 350 Intake: IV Fluids 100 / 100 1100 / 1100 0.9 % Sodium Chloride 1, 1000 / 1000 000 ML @ 100 mls/hr IVC . Q10H [facility] Rx#:[id number] Zosyn 3.375 GM In 100 / 100 100 / 100 Dextrose 5% (Minibag+) 100 ML 100 ML @ 25 mls/hr IVPB Q8HR [facility] Rx#: [id number] Oral 360 / 360 Output: Urine 0 / 0 Wound Drainage Right Abdomen Other: Meal Breakfast Percent of Meal Consumed 90% # Voids 2 1 # Bowel Movements 1 Blood Glucose* 101 - General physical appearance well developed, well nourished, no distress - Eyes normal ocular movement - ENT normal mucosa, atraumatic, normocephalic - Neck Neck exam: trachea midline - Respiratory normal respiratory effort, clear to auscultation - Cardiovascular Cardiovascular exam: Present: RRR - Abdomen Abdomen: Present: bowel sounds present, soft, non tender - Integumentary no rash - Neurologic CN 2-12 grossly intact - Psychiatric oriented to time, oriented to person, oriented to place, speech is normal, memory intact - Labs 04/16/16 10:10 04/16/16 10:10 Diabetes panel 04/16/16 Range/Units 10:10 Sodium 137 (136-145) mEq/L Potassium 3.0 L (3.5-4.5) mEq/L Chloride 107 (98-109) mEq/L Carbon Dioxide 22 (19-29) mEq/L BUN 14 (8-26) mg/dL Creatinine 0.78 (0.72-1.25) mg/dL Glucose 134 H (70-99) mg/dL Calcium 8.1 L (8.6-10.8) mg/dL AST 18 (5-34) Units/L ALT 29 (0-55) Units/L Alkaline Phosphatase 68 (38-126) Units/L Albumin 2.3 L (3.5-5.0) g/dL Calcium panel 04/16/16 Range/Units 10:10 Calcium 8.1 L (8.6-10.8) mg/dL Albumin 2.3 L (3.5-5.0) g/dL Pituitary panel 04/16/16 Range/Units 10:10 Sodium 137 (136-145) mEq/L Potassium 3.0 L (3.5-4.5) mEq/L Chloride 107 (98-109) mEq/L Carbon Dioxide 22 (19-29) mEq/L BUN 14 (8-26) mg/dL Creatinine 0.78 (0.72-1.25) mg/dL Glucose 134 H (70-99) mg/dL Calcium 8.1 L (8.6-10.8) mg/dL Adrenal panel 04/16/16 Range/Units 10:10 Sodium 137 (136-145) mEq/L Potassium 3.0 L (3.5-4.5) mEq/L Chloride 107 (98-109) mEq/L Carbon Dioxide 22 (19-29) mEq/L BUN 14 (8-26) mg/dL Creatinine 0.78 (0.72-1.25) mg/dL Glucose 134 H (70-99) mg/dL Calcium 8.1 L (8.6-10.8) mg/dL Total Bilirubin 0.4 (0.2-1.2) mg/dL AST 18 (5-34) Units/L ALT 29 (0-55) Units/L Alkaline Phosphatase 68 (38-126) Units/L Albumin 2.3 L (3.5-5.0) g/dL Consult Discharge Plan - Plan Referrals: Demetris Dao DO [Primary Care Provider] - <SudhirEvanReagan M - Last Filed: 04/17/16 06:54> - Assessment and Plan (1) Subhepatic abscess Current Visit: Yes Status: Acute (2) Choledocholithiasis Current Visit: Yes Status: Acute Objective Vital Signs - Last 8 Hours Temp Pulse Resp BP Pulse Ox 04/17/16 04:51 98.5 F 83 15 136/70 95 04/17/16 00:47 98.8 F 74 15 136/80 95 Intake and Output 04/16/16 04/16/16 04/17/16 15:59 23:59 07:59 Intake Total 1700 / 1700 220 / 220 0 / 0 Output Total 10 10 Balance 1690 / 1690 210 / 210 0 / 0 Intake: IV Fluids 1100 / 1100 100 / 100 0.9 % Sodium Chloride 1, 1000 / 1000 000 ML @ 100 mls/hr IVC . Q10H [facility] Rx#:[id number] Zosyn 3.375 GM In 100 / 100 100 / 100 Dextrose 5% (Minibag+) 100 ML 100 ML @ 25 mls/hr IVPB Q8HR [facility] Rx#: [id number] Oral 600 / 600 120 / 120 0 / 0 Output: Urine 0 / 0 Wound Drainage 10 / 10 Right Abdomen Other: Meal Lunch Dinner Percent of Meal Consumed 15% 25% # Voids 1 2 1 Weight 124.73 kg Patient Weight 04/17/16 23:59 Weight 124.73 kg - Labs 04/16/16 10:10 04/16/16 10:10 Diabetes panel 04/16/16 Range/Units 10:10 Sodium 137 (136-145) mEq/L Potassium 3.0 L (3.5-4.5) mEq/L Chloride 107 (98-109) mEq/L Carbon Dioxide 22 (19-29) mEq/L BUN 14 (8-26) mg/dL Creatinine 0.78 (0.72-1.25) mg/dL Glucose 134 H (70-99) mg/dL Calcium 8.1 L (8.6-10.8) mg/dL AST 18 (5-34) Units/L ALT 29 (0-55) Units/L Alkaline Phosphatase 68 (38-126) Units/L Albumin 2.3 L (3.5-5.0) g/dL Calcium panel 04/16/16 Range/Units 10:10 Calcium 8.1 L (8.6-10.8) mg/dL Albumin 2.3 L (3.5-5.0) g/dL Pituitary panel 04/16/16 Range/Units 10:10 Sodium 137 (136-145) mEq/L Potassium 3.0 L (3.5-4.5) mEq/L Chloride 107 (98-109) mEq/L Carbon Dioxide 22 (19-29) mEq/L BUN 14 (8-26) mg/dL Creatinine 0.78 (0.72-1.25) mg/dL Glucose 134 H (70-99) mg/dL Calcium 8.1 L (8.6-10.8) mg/dL Adrenal panel 04/16/16 Range/Units 10:10 Sodium 137 (136-145) mEq/L Potassium 3.0 L (3.5-4.5) mEq/L Chloride 107 (98-109) mEq/L Carbon Dioxide 22 (19-29) mEq/L BUN 14 (8-26) mg/dL Creatinine 0.78 (0.72-1.25) mg/dL Glucose 134 H (70-99) mg/dL Calcium 8.1 L (8.6-10.8) mg/dL Total Bilirubin 0.4 (0.2-1.2) mg/dL AST 18 (5-34) Units/L ALT 29 (0-55) Units/L Alkaline Phosphatase 68 (38-126) Units/L Albumin 2.3 L (3.5-5.0) g/dL - Attending Attestation I examined this patient and my medical decision-making was reviewed with the SCREWDOWN OPERATOR/PA/Advanced Practice Nurse/Resident Physician. I agree with the documented findings, disposition and treatment plan as described except to the extent set forth below. Patient states his pain has resolved. Minimal drainage from the MEGAN drain. Tolerating by mouth. Patient wishes to go home but will wait until the GI physician sees him later today to see whether or not he would like to stay for an ERCP.
[2016-04-16] MEDS ORDERED: *HR* OxyCODONE/APAP 5/325 TABLET PO PRN (16:11)
[2016-04-16] MEDS ORDERED: *HR* HYDROmorphone 2 MG/ML SYRINGE IVP PRN (16:12)
--- NOTE | 2016-04-16 18:34 | Event Note ---
Date of Encounter: 04/16/16 Time of Encounter: 18:00 Patient seen full consent to follow. Patient with CBD stone. Recommendation: ERCP tomorrow. Can have a clear breakfast in the morning but then nothing by mouth.
[2016-04-17] MEDS: Ketorolac 30 MG/ML VIAL IVP SCH ×2 (07:27→12:17)
--- NOTE | 2016-04-17 07:35 | General Surgery Progress Note ---
Date of Encounter: 04/17/16 Time of Encounter: 07:32 - Assessment and Plan (1) Subhepatic abscess Current Visit: Yes Status: Acute Will continue with drainage and keep in place for now. Continue with IV antibiotics. (2) Choledocholithiasis Current Visit: Yes Status: Acute Patient has agreed to stay for an ERCP today. Likely will be able to discharge home after the procedure (on PO antibiotics-Augmentin 875mg BID for 7 days and pain medication). Patient has a follow up appointment for 04/23/16. Subjective Patient reports: other (RUQ drain in place. Minimal drainage. No abdominal pain. No nausea/vomiting.) Objective Vital Signs - Last 8 Hours Temp Pulse Resp BP Pulse Ox 04/17/16 04:51 98.5 F 83 15 136/70 95 04/17/16 00:47 98.8 F 74 15 136/80 95 Intake and Output 04/16/16 04/16/16 04/17/16 15:59 23:59 07:59 Intake Total 1700 / 1700 220 / 220 100 / 100 Output Total Balance 1690 / 1690 210 / 210 100 / 100 Intake: IV Fluids 1100 / 1100 100 / 100 100 / 100 0.9 % Sodium Chloride 1, 1000 / 1000 000 ML @ 100 mls/hr IVC . Q10H [facility] Rx#:[id number] Zosyn 3.375 GM In 100 / 100 100 / 100 100 / 100 Dextrose 5% (Minibag+) 100 ML 100 ML @ 25 mls/hr IVPB Q8HR [facility] Rx#: [id number] Oral 600 / 600 120 / 120 0 / 0 Output: Urine 0 / 0 Wound Drainage 10 Right Abdomen Other: Meal Lunch Dinner Percent of Meal Consumed 15% 25% # Voids 1 2 1 Weight 124.73 kg Patient Weight 04/17/16 23:59 Weight 124.73 kg - General physical appearance well developed, well nourished - Abdomen Abdomen: Present: soft, non tender (RUQ drain functioning.) - Labs 04/16/16 10:10 04/16/16 10:10 Diabetes panel 04/16/16 Range/Units 10:10 Sodium 137 (136-145) mEq/L Potassium 3.0 L (3.5-4.5) mEq/L Chloride 107 (98-109) mEq/L Carbon Dioxide 22 (19-29) mEq/L BUN 14 (8-26) mg/dL Creatinine 0.78 (0.72-1.25) mg/dL Glucose 134 H (70-99) mg/dL Calcium 8.1 L (8.6-10.8) mg/dL AST 18 (5-34) Units/L ALT 29 (0-55) Units/L Alkaline Phosphatase 68 (38-126) Units/L Albumin 2.3 L (3.5-5.0) g/dL Calcium panel 04/16/16 Range/Units 10:10 Calcium 8.1 L (8.6-10.8) mg/dL Albumin 2.3 L (3.5-5.0) g/dL Pituitary panel 04/16/16 Range/Units 10:10 Sodium 137 (136-145) mEq/L Potassium 3.0 L (3.5-4.5) mEq/L Chloride 107 (98-109) mEq/L Carbon Dioxide 22 (19-29) mEq/L BUN 14 (8-26) mg/dL Creatinine 0.78 (0.72-1.25) mg/dL Glucose 134 H (70-99) mg/dL Calcium 8.1 L (8.6-10.8) mg/dL Adrenal panel 04/16/16 Range/Units 10:10 Sodium 137 (136-145) mEq/L Potassium 3.0 L (3.5-4.5) mEq/L Chloride 107 (98-109) mEq/L Carbon Dioxide 22 (19-29) mEq/L BUN 14 (8-26) mg/dL Creatinine 0.78 (0.72-1.25) mg/dL Glucose 134 H (70-99) mg/dL Calcium 8.1 L (8.6-10.8) mg/dL Total Bilirubin 0.4 (0.2-1.2) mg/dL AST 18 (5-34) Units/L ALT 29 (0-55) Units/L Alkaline Phosphatase 68 (38-126) Units/L Albumin 2.3 L (3.5-5.0) g/dL Consult Discharge Plan - Plan Referrals: Demetris Dao DO [Primary Care Provider] -
[2016-04-17] MEDS: Piperacillin/Tazobactam 3.375 GM in D5% in Water (Mini-Bag+) 100 ML IVPB SCH ×2 (07:47→16:05)
[2016-04-17] MEDS: Lisinopril 20 MG TABLET PO SCH (07:47)
[2016-04-17] MEDS: Pantoprazole 40 MG VIAL IVP SCH (07:48)
--- NOTE | 2016-04-17 08:20 | Gastroenterology Consult Note ---
<Merna Mitchell - Last Filed: 04/17/16 10:18> Date of Encounter: 04/17/16 Time of Encounter: 09:50 - Assessment and plan (1) Choledocholithiasis Current Visit: Yes Status: Acute Assessment and plan: ERCP today. LFTs wnl. (2) Status post cholecystectomy Current Visit: Yes Status: Resolved (3) Subhepatic abscess Current Visit: Yes Status: Resolved Assessment and plan: Patient underwent I/R drainage of same. Leukocytosis is improving. EUS today during ERCP for choledocholelithiasis. - Time Spent With Patient Total time spent is greater than 50% in coordination of care (as documented) at patient's floor/unit and/or counseling patient: less than 15 minutes GI History of Present Illness - Data of Consult Patient: new to practice Consult date: 04/17/16 Requesting Physician: Reagan Peguero MD - Consult Narrative Reason for consult: choledocholelithiasis History of present illness: Mr. Pires is a 50 year old male who recently underwent a laparoscopic cholecystectomy with intraoperative cholangiogram and attempted removal of common bile duct stone on 04/10/[address] Peguero, presents to the [facility] emergency room with increasing abdominal pain particularly worsened with deep breaths, as well as rigors. The patient contacted Dr. Peguero stating that he been having some increasing abdominal pain symptoms since his surgery. He was instructed to take Motrin in addition to his current pain medication which did resolve his symptoms. He was to follow -up in the office next week and also be referred to gastroenterology for possible ERCP due to the non-retrievable, non-obstructive common bile duct stone (which had likely been present for some time and which was free-floating within the common bile duct), however because of his persistent and worsening abdominal pain symptoms he presented to the emergency room. He denies any nausea or vomiting and denies any diarrhea or constipation or rectal bleeding. Patient was dx with subhepatic abscess, I/R placed a MEGAN drain yesterday. Patient admits continued abd pain today, denies any N/V, indigestion/heartburn, constipation or diarrhea. No report of rectal bleeding. He had a Cscope 07/[address] Peguero which was normal, recommendation to repeat in 10 years. He denies any additional rigors today or fever. Colonoscopy: 07/2015 Sudhir - wnl - repeat 10 years. EGD: None Past Med Surg Social Fam HX - Past Medical History Medical history: arthritis, GERD, hypertension Psychiatric history: no psych history - Past Surgical History Surgical History: cholecystectomy, vasectomy - Social History Smoking Status: Former smoker Smokeless Tobacco Status: No Alcohol use: occasionally Drug use: none - Gastrointestinal NSAID use: None noted Anticoagulation Use: None noted Number of BM Per Day: 1 Gastrointestinal: Present: as per HPI - Constitutional Constitutional: as per HPI - EENT Eyes: as per HPI Ears: Present: as per HPI Nose, mouth and throat: Present: as per HPI - Cardiovascular Cardiovascular ROS: Present: as per HPI - Respiratory Respiratory IM: Present: as per HPI - Neurological ROS Neurological GI: Present: as per HPI - Hematologic/Lymphatic Hematologic/Lymphatic pediatric: Present: as per HPI - Musculoskeletal Musculoskeletal ROS GI: Present: as per HPI - Integumentary Integumentary GI: Present: as per HPI - Psychiatric ROS Psychiatric GI: Present: as per HPI - Endocrine Endocrine IM: Present: as per HPI - Constitutional Vitals: Temp Pulse Resp BP Pulse Ox 98.4 F 77 16 160/81 96 04/17/16 07:43 04/17/16 07:43 04/17/16 07:43 04/17/16 07:43 04/17/16 07:43 General appearance: Present: cooperative, A&O X 3, no acute distress, answers questions appropriately - Head Head exam: Present: atraumatic, normocephalic - Eye Eye exam: Present: normal appearance, sclera anicteric - ENT ENT exam: Present: mucous membranes moist - Neck Neck exam general surgery: Present: normal inspection, trachea midline - Respiratory Respiratory exam: Present: CTAB - Cardiovascular Cardiovascular exam: Present: RRR, +S1, +S2 - GI/Abdominal GI/Abdominal exam: Present: soft, tenderness - Rectal Rectal exam: Present: deferred - Extremities Exam Extremities exam: Present: warm - Neurological Exam Neurological exam: Present: no focal deficits - Psychiatric Psychiatric exam: Present: normal affect, normal mood - Skin Skin exam: Present: dry, intact, normal color, warm Results - Labs CBC & Chem 7: 04/16/16 10:10 04/16/16 10:10 Labs: Last Result Calcium 8.1 mg/dL (8.6-10.8) L 04/16/16 10:10 Entire Visit Hgb 10.8 g/dL (12.9-16.9) L 04/16/16 10:10 Hct 32.7 % (37.5-50.1) L 04/16/16 10:10 PT 12.2 Seconds (9.4-12.1) H 04/14/16 07:46 Total Bilirubin 0.4 mg/dL (0.2-1.2) 04/16/16 10:10 AST 18 Units/L (5-34) 04/16/16 10:10 ALT 29 Units/L (0-55) 04/16/16 10:10 - ABG ABG results: PT/INR, D-dimer PT 12.2 Seconds (9.4-12.1) H 04/14/16 07:46 Consult Discharge Plan - Plan Additional Instructions: #1 may shower, no tub bath for 2 weeks #2 wash incisions with soap and water and pat dry daily #3 no lifting, pushing, pulling more than 15 pounds for the next 2 weeks #4 no driving until off narcotics for 24 hours and able to safely react in the car #5 may climb stairs #6 drain care- wash around drain with soap and water and pat dry daily, apply split 4X4 gauze and tape to secure daily. Empty drain 2 times daily and as needed. Record outputs and bring to follow-up appointment on 04/23/16 with Chelita Hedrick CNP. Referrals: Demetris Dao DO [Primary Care Provider] - Chelita Hedrick CNP [Advanced Practice Nurse] - 04/23/16 8:30 am (hospital follow-up) Prescriptions: OxyCODONE/APAP 10/325 [Percocet 10/325 MG] 1 tab PO Q6HR PRN #30 tablet PRN Reason: Pain Docusate [Colace] 100 mg PO BID #30 capsule <Gege Ferro - Last Filed: 04/17/16 15:35> Time of Encounter: 13:00 - Time Spent With Patient Total time spent is greater than 50% in coordination of care (as documented) at patient's floor/unit and/or counseling patient: GI History of Present Illness - Data of Consult Requesting Physician: Reagan Sudhir, MD - Consult Narrative History of present illness: Mr. Pires is a 50 year old male - Constitutional Vitals: Temp Pulse Resp BP Pulse Ox 98.6 F 69 16 101/47 94 L 04/17/16 15:20 04/17/16 15:30 04/17/16 15:30 04/17/16 15:30 04/17/16 15:30 Results - Labs CBC & Chem 7: 04/16/16 10:10 04/16/16 10:10 Labs: Last Result Calcium 8.1 mg/dL (8.6-10.8) L 04/16/16 10:10 Entire Visit Hgb 10.8 g/dL (12.9-16.9) L 04/16/16 10:10 Hct 32.7 % (37.5-50.1) L 04/16/16 10:10 PT 12.2 Seconds (9.4-12.1) H 04/14/16 07:46 Total Bilirubin 0.4 mg/dL (0.2-1.2) 04/16/16 10:10 AST 18 Units/L (5-34) 04/16/16 10:10 ALT 29 Units/L (0-55) 04/16/16 10:10 - ABG ABG results: PT/INR, D-dimer PT 12.2 Seconds (9.4-12.1) H 04/14/16 07:46 - Impressions Impressions Cath/Invasive Procedure 04/17/16 14:40 IMPRESSION: Intraprocedural fluoroscopic spot images as above. See separate procedure report for more information. D/ / Case Lyon MD / Case Lyon MD Interpreting Provider: Case Lyon MD - Attending Attestation I examined this patient and my medical decision-making was reviewed with the FIRER ELECTRIC LOCOMOTIVE/PA/Advanced Practice Nurse/Resident Physician. I agree with the documented findings, disposition and treatment plan as described except to the extent set forth below. Patient with suspected CBD stone.... We will do an EUS first to confirm the stone and then the ERCP.
--- NOTE | 2016-04-17 13:48 | Anesthesia Evaluation PreOp ---
Date of Encounter: 04/17/16 Time of Encounter: 13:46 - Past History Planned Operation: ercp Cardiac History: HTN, Other (lvef 72%) Pulmonary History: Former smoker (quit 1998) ASSOCIATE RELATIONS SPECIALIST History: Other (anxiety/deptression) Other Medical History: Hepatic (fatty liver) Anesthesia History: No Prior Anesthetic Complications, Past Anesthesia (sofia, t &A, Vasectomy,) Alcohol Use: occasionally Drug use: none Medications and Allergies Lisinopril [Zestril] 20 mg PO DAILY 04/11/16 [History] Omeprazole [PriLOSEC] 40 mg PO DAILY 04/11/16 [History] Sertraline [Zoloft] 100 mg PO DAILY 04/11/16 [History] Ibuprofen [Motrin] 800 mg PO TID 04/14/16 [History] OxyCODONE/APAP 10/325 [Percocet 10/325 MG] 1 tab PO Q6HR PRN 04/14/16 [History] Allergies No Known Allergies Allergy (Verified 04/14/16 05:49) - Meds/Allergy Pre-op Review Medications Reviewed: Yes Allergies Reviewed: Yes Beta Blockers on Current Med List: No Anesthesia Results - Labs 04/16/16 10:10 04/16/16 10:10 Anesthesia Exam Vital Signs/O2 Sat, Most Current Temp Pulse Resp BP Pulse Ox 99.1 F 67 16 164/90 95 04/17/16 13:21 04/17/16 13:21 04/17/16 13:21 04/17/16 13:21 04/17/16 13:21 Height: 1.85 Weight: 127 NPO (# of Hours): 8 Pain Scale: 3 Pain Scale Used: Numeric (1 - 10) - HEENT Pupil (Motor): Pupils equal Mallampati: II Teeth: Normal Oral Opening: Greater than 3 - ASSOCIATE RELATIONS SPECIALIST LOC: Oriented ASSOCIATE RELATIONS SPECIALIST Motor: Normal RUE, Normal LUE, Normal RLE, Normal LLE, Normal Face ASSOCIATE RELATIONS SPECIALIST Sensory: Normal: RUE, LUE, RLE, LLE, Face - Cardiac Rhythm: Regular Murmur: None - Pulmonary Breath Sounds: bilateral Clear Respiratory Effort: Symmetrical Anesthesia Assess/Plan ASA Score: 2 Modified [place] Scale for Level of Consciousness: Cooperative, oriented, and tranquil Anesthetic Plan: General Autologous Blood: No Monitoring Plan: Standard Monitors Recovery Plan: PACU (risks discussed, questions answered, consented)
--- NOTE | 2016-04-17 14:12 | Discharge Summary ---
<Chelita Hedrick Juli - Last Filed: 04/17/16 14:09> Date of Encounter: 04/17/16 Time of Encounter: 14:09 - Discharge Diagnosis (1) Subhepatic abscess Priority: Primary Status: Acute (2) Choledocholithiasis Priority: Primary Status: Acute (3) Status post cholecystectomy Priority: Primary Status: Resolved - Discharge Medications Prescriptions: OxyCODONE/APAP 10/325 [Percocet 10/325 MG] 1 tab PO Q6HR PRN #30 tablet PRN Reason: Pain Amoxicillin/Clavulanate [Augmentin] 875 mg PO BID #14 tablet Docusate [Colace] 100 mg PO BID #30 capsule Home Medications: Lisinopril [Zestril] 20 mg PO DAILY 04/11/16 [History] Omeprazole [PriLOSEC] 40 mg PO DAILY 04/11/16 [History] Sertraline [Zoloft] 100 mg PO DAILY 04/11/16 [History] Ibuprofen [Motrin] 800 mg PO TID 04/14/16 [History] Amoxicillin/Clavulanate [Augmentin] 875 mg PO BID #14 tablet 04/17/16 [Rx] Docusate [Colace] 100 mg PO BID #30 capsule 04/17/16 [Rx] OxyCODONE/APAP 10/325 [Percocet 10/325 MG] 1 tab PO Q6HR PRN #30 tablet [Rx] Allergies/Adverse Reactions: Allergies No Known Allergies Allergy (Verified 04/14/16 05:49) General Surgery Exam Initial Vital Signs Temp Pulse Resp BP Pulse Ox 98 F 106 20 127/76 96 04/14/16 05:49 04/14/16 05:49 04/14/16 05:49 04/14/16 05:49 04/14/16 05:49 - General physical appearance well developed, well nourished, no distress, no pain - Eyes normal ocular movement - ENT normal mucosa, atraumatic, normocephalic - Neck trachea midline - Respiratory normal respiratory effort, clear to auscultation - Cardiovascular Cardiovascular exam: Present: RRR - Abdomen Abdomen general surgery: Present: bowel sounds present, soft, non tender, wound (Pigtail drain to bulb suction) - Incision Incision: Present: clean and dry, intact - Integumentary Integumentary general surgery: Present: warm and dry - Neurologic Present: CN 2-12 grossly intact - Musculoskeletal Present: normal gait, normal posture - Psychiatric Psychiatric general surgery: Present: appropriate, oriented to person, oriented to place, oriented to time, speech is normal, memory intact Date of admission: 04/14/16 08:01 Primary care physician: Demetris Dao, Consults: 04/16/16 09:08 Consult to Gastroenterology [CONS] Stat Consulting Provider: Gastroenterology Jud Reason for Consult: CBD stone Time Notified: 09:09 Call Completed: Yes Discharging clinician: Reagan Peguero (Megan Hedrick) Anticipated date of discharge: 04/17/16 - Patient Status Disposition: Home, Self-Care Condition: Good Overall status at discharge: patient is progressing back to baseline - Discharge Instructions Follow Up With: Demetris Dao DO [Primary Care Provider] - Chelita Hedrick CNP [Advanced Practice Nurse] - 04/23/16 8:30 am (hospital follow-up) Additional Instructions: #1 may shower, no tub bath for 2 weeks #2 wash incisions with soap and water and pat dry daily #3 no lifting, pushing, pulling more than 15 pounds for the next 2 weeks #4 no driving until off narcotics for 24 hours and able to safely react in the car #5 may climb stairs #6 drain care- wash around drain with soap and water and pat dry daily, apply split 4X4 gauze and tape to secure daily. Empty drain 2 times daily and as needed. Record outputs and bring to follow-up appointment on 04/23/16 with Chelita Hedrick CNP. - Diet and Activity Activity: increase activity as tolerated Diet: advance to your usual diet - Hospital Course Hospital course: Mr. Pires is a 50 year old male presented to the hospital after undergoing laparosocpic cholecystectomy on 04/10/[address] Pegu[address] His CT showed evidence of a subhepatic fluid collection and a common bile duct stone. He was started on IV antibiotics and supportive care. He was sent to Interventional Radiology for drainage of the fluid collection. Dr. Ferro was consulted for retained common bile duct stone. His liver function tests are trending toward normal. His vital signs are stable and he is afebrile. His pain has significantly improved. We will begin discharge planning to home after completion of the patients ERCP and removal of CBD stone. Plan for outpatient follow-up in the next 1-2 weeks. - Time Spent with Patient Total time spent providing and/or coordinating discharge services: Less than 30 minutes Labs on day of discharge: Labs from last 24 hours 04/17/16 10:55 POC Glucose 118 H - Attending Attestation I examined this patient and my medical decision-making was reviewed with the BLUEPRINT CUTTER/PA/Advanced Practice Nurse/Resident Physician. I agree with the documented findings, disposition and treatment plan as described except to the extent set forth below. <Reagan Peguero M - Last Filed: 04/17/16 16:21> - Discharge Diagnosis (1) Subhepatic abscess Status: Resolved (2) Choledocholithiasis Status: Acute General Surgery Exam Initial Vital Signs Temp Pulse Resp BP Pulse Ox 98 F 106 20 127/76 96 04/14/16 05:49 04/14/16 05:49 04/14/16 05:49 04/14/16 05:49 04/14/16 05:49 Date of admission: 04/14/16 08:01 Primary care physician: Demetris Dao, Consults: 04/16/16 09:08 Consult to Gastroenterology [CONS] Stat Consulting Provider: Gastroenterology Jud Reason for Consult: CBD stone Time Notified: 09:09 Call Completed: Yes - Hospital Course Hospital course: Mr. Pires is a 50 year old male - Time Spent with Patient Total time spent providing and/or coordinating discharge services: Labs on day of discharge: Labs from last 24 hours 04/17/16 10:55 POC Glucose 118 H - Impressions ITS Impressions Cath/Invasive Procedure 04/17/16 14:40 IMPRESSION: Intraprocedural fluoroscopic spot images as above. See separate procedure report for more information. D/ / Case Lyon MD / Case Lyon MD Interpreting Provider: Case Lyon MD
[2016-04-17] MEDS ORDERED: Ondansetron 4 MG/2 ML VIAL IVP PRN (14:38)
[2016-04-17] MEDS ORDERED: *HR* Promethazine 25 MG/ML VIAL IVP PRN (14:38)
[2016-04-17] MEDS ORDERED: *HR* HYDROmorphone (PF) 1 MG/ML SYRINGE IVP PRN (14:38)
[2016-04-17] MEDS ORDERED: *HR* Labetalol 100 MG/20 ML MDV IVP PRN (14:38)
--- NOTE | 2016-04-17 15:43 | Anesthesia Evaluation Post Op ---
Date of Encounter: 04/17/16 Time of Encounter: 15:45 - Vital Signs Vital Signs: Vital Signs/O2 Sat/Glucose, Most Current Temp Pulse Resp BP Pulse Ox 04/17/16 15:40 66 16 140/70 95 04/17/16 15:30 69 16 101/47 94 L 04/17/16 15:20 98.6 F 76 16 127/65 93 L 04/17/16 13:21 99.1 F 67 16 164/90 95 - Lungs Lungs: Clear Ascult./Percussion - Airway Airway: Non-obstructed - Cardiovascular Regular Rate - Mental Status Mental Status: Alert & Oriented, Answers Appropriately - Pain Pain Scale: 0 - Nausea Vomiting Nausea Vomiting: Not Present - Hydration Hydration: NPO - Discharge PostOp Status: Transfer Patient to floor
[2016-04-17 16:04] VITALS: BP 143/71
[2016-04-17] MEDS ORDERED: Indomethacin 50 MG SUPP.RECT RC ONE (16:28)
[2016-04-17] MEDS ORDERED: *HR* Propofol 200 MG/20 ML VIAL IVP ONE (18:14)
[2016-04-17] MEDS ORDERED: Ondansetron 4 MG/2 ML VIAL IVP ONE (18:14)
[2016-04-17] MEDS ORDERED: Lidocaine -MPF 2% 5 ML VIAL INFILT ONE (18:14)
== END 2016-04-17 18:15 | disposition home or self-care (01) | DRG 444 ==
LOC: EMEROO 05:47 → 3ANU 08:01
PROVIDERS: ADMIT Surgery; ATTEND Surgery
PROC: IRDRAIN (2016-04-14 10:00)
PROC: ENDOEUS (2016-04-17 14:00)